=== PATIENT | male | born 1990 | race Two or more races ===

== ENCOUNTER 2021-05-25 11:58 | Emergency (ER) | payer OTHER ==
[2021-05-25 12:08] VITALS: BP 134/90; TEMP 97.7; BMI 29.2
[2021-05-25] MEDS ORDERED: ACETAMINOPHEN 1000 MG/100 ML BAG IVPB ONE (13:13)
[2021-05-25 13:40] LABS: BASO % 0.9 % (0-2.0); EOS % 1.6 % (0-4.5); HEMATOCRIT 49.5 % (35.4-49); HEMOGLOBIN 16.4 GM/dL (11.7-16.9); LYMPH % 21.2 % (8-40); MCH 31.2 pg (25.7-33.7); MEAN CELL VOLUME 94.4 fl (80-96); MEAN PLT VOLUME 11.4 fl (7.5-11.1); MONO % 5.4 % (3.8-10.2); NEUT % 70.9 % (42.8-82.8); PLATELET COUNT 226 10^3/uL (134-434); RBC 5.24 M/mm3 (4.00-5.60); WHITE BLOOD COUNT 7.9 K/mm3 (4.0-10.0)
[2021-05-25] MEDS ORDERED: ACETAMINOPHEN INJECTION 100 ML IVPB ONE (13:41)
[2021-05-25 13:48] LABS: INR 1.1 (0.83-1.09); PROTHROMBIN TIME (PATIENT) 12.7 SEC (9.7-13.0)
[2021-05-25 13:53] LABS: CALCIUM 10.3 mg/dL (8.5-10.1)
[2021-05-25 13:54] LABS: ALBUMIN 4.3 g/dl (3.4-5.0); BLOOD UREA NITROGEN 15.2 mg/dL (7-18)
[2021-05-25 13:58] LABS: TOT PROT 8.7 g/dl (6.4-8.2)
[2021-05-25 13:59] LABS: BILIRUBIN,TOTAL 0.6 mg/dL (0.2-1)
[2021-05-25 15:53] LABS: BLOOD UREA NITROGEN 14.5 mg/dL (7-18); CALCIUM 9.4 mg/dL (8.5-10.1)
[2021-05-25 15:58] LABS: BILIRUBIN,TOTAL 0.4 mg/dL (0.2-1); TOT PROT 7.6 g/dl (6.4-8.2)
[2021-05-25 18:47] VITALS: PULSE 90
== END 2021-05-25 19:30 | disposition home or self-care (01) ==
LOC: JER 11:58
PROC: 3E0333Z Introduction of Anti-inflammatory into Peripheral Vein, Percutaneous Approach (ICD-10-PCS; principal; 2021-05-25)
DX: K42.9 Umbilical hernia without obstruction or gangrene (principal)
CPT/HCPCS: 36415; 71275-TC; 74177-TC; 80053; 83605; 85025; 85610; 86850; 86900; 86901; 99285-25; Q9967